=== PATIENT | female | born 1985 | race Caucasian/White ===

== ENCOUNTER → 2020-03-17 10:41 | Outpatient (CLI) | payer OTHER, SELFPAY ==
[2020-05-12 15:01] LABS: Sequential Screen 1st Trimeste FINAL PENDING
== END ==
DX: O09.521 Supervision of elderly multigravida, first trimester (principal); Z3A.11 11 weeks gestation of pregnancy; Z36.0 Encounter for antenatal screening for chromosomal anomalies
CPT/HCPCS: 36415; 84163; 84702

== ENCOUNTER → 2020-04-25 08:44 | Outpatient (CLI) | payer OTHER, SELFPAY ==
[2020-04-25 09:39] LABS: Add Manual Diff / Slide Review NO; Basophils Absolute Auto 0 /uL (0-100); Basophils Percent Auto 0.3 % (0-2); Eosinophils Absolute Auto 100 /uL (0-450); Eosinophils Percent Auto 0.7 % (2-4); Hematocrit 38.3 % (36-46); Hemoglobin 13.4 g/dL (12.0-16.0); Lymphocytes Absolute Auto 2100 /uL (1100-4500); Lymphocytes Percent Auto 20.1 % (25-40); Mean Corpuscular HGB Conc 34.9 % (30-36); Mean Corpuscular Hemoglobin 30.3 PG (26-34); Mean Corpuscular Volume 86.9 fL (80-100); Monocytes Absolute Auto 600 /uL (0-900); Monocytes Percent Auto 5.7 % (3-14); Neutrophils Absolute Auto 7800 /uL (1500-7000); Neutrophils Percent Auto 73.2 % (50-75); Platelet Count 314 X10^3/uL (150-400); Red Blood Cell Count 4.41 X10^6/uL (4.0-5.2); Red Cell Distribution Width 12.8 % (11.6-14.8); White Blood Cell Count 10.7 X10^3/uL (4.5-11.0)
[2020-04-25 09:41] LABS: Appearance Urine UA CLOUDY; Bilirubin Urine UA NEGATIVE (NEGATIVE); Color Urine UA YELLOW; Glucose Urine UA NEGATIVE (Negative); Ketones Urine UA NEGATIVE (NEGATIVE); Leukocyte Esterase Urine UA 3+ (NEGATIVE); Nitrite Urine UA NEGATIVE (Negative); Occult Blood Urine UA NEGATIVE (Negative); Protein Urine UA NEGATIVE (Negative); Urobilinogen Urine UA 0.2 E.U./dL (0.2)
[2020-04-25 09:46] LABS: pH Urine UA 6.5 (4.5-8.0)
[2020-04-25 09:47] LABS: RBC Urine None Seen (0-5/HPF)
[2020-04-25 09:52] LABS: Bacteria Urine Many (>30); Culture Indicated Urine Cult Not Indicated; Squamous Epithelial Cell Urine >30 /HPF (0-5/HPF); WBC Urine 10-30/HPF (0-5/HPF)
[2020-04-25 15:54] LABS: Hepatitis B Surface Antigen NEGATIVE s/c (NEGATIVE)
[2020-04-25 16:09] LABS: HIV 1 & 2 Ab/Ag 4th Gen Combo NEGATIVE (NEGATIVE); Hep C Virus Ab w/Reflex Quant NEGATIVE s/c (NEGATIVE)
[2020-04-25 16:16] LABS: Rubella Antibody IgG 70.8 IU/mL (>15)
[2020-04-26 05:08] LABS: RPR Screen Non Reactive (Non Reactive)
[2020-04-26 07:39] LABS: Varicella IgG Antibody 2450 index (Immune >165)
== END ==
PROVIDERS: PCP Specialist; Referring Provider Specialist; Visit Provider Specialist
DX: Z34.02 Encounter for supervision of normal first pregnancy, second trimester (principal); Z36.0 Encounter for antenatal screening for chromosomal anomalies; Z3A.17 17 weeks gestation of pregnancy
CPT/HCPCS: 36415; 80055; 81003; 81015; 82105; 82677; 84163; 84702; 86336; 86787; 86803; 86850; 86900; 86901; 87389; 87491; 87591

== ENCOUNTER → 2022-01-15 11:59 | Outpatient (CLI) | payer OTHER, SELFPAY ==
[2022-01-15 14:31] LABS: Urine N gonorrhoeae NOT DETECTED
[2022-01-15 14:46] LABS: Urine Chlamydia NOT DETECTED
== END ==
PROVIDERS: PCP Specialist; Visit Provider Specialist
DX: Z34.81 Encounter for supervision of other normal pregnancy, first trimester (principal)
CPT/HCPCS: 87491; 87591